=== PATIENT | male | born 1995 ===

== ENCOUNTER 2021-11-21 23:23 | Emergency (ER) | payer SELFPAY ==
[2021-11-21 23:44] VITALS: BP 160/90
== END 2021-11-22 06:40 | disposition left against medical advice (07) ==
LOC: ED 23:23
DX: Z04.1 Encounter for examination and observation following transport accident (principal); Z53.21 Procedure and treatment not carried out due to patient leaving prior to being seen by health care provider; Y03.8XXA Other assault by crashing of motor vehicle, initial encounter; Y93.89 Activity, other specified; Y92.89 Other specified places as the place of occurrence of the external cause; Y99.8 Other external cause status